=== PATIENT | male | born 1965 | race Hispanic/Latino ===

== ENCOUNTER 2024-10-04 11:24 | Emergency (ER) | payer OTHER ==
[~2024-10-04] VITALS: Ht 182.9 cm; Wt 106.1 kg
[~2024-10-04 11:24] MED LIST: BP; Z.0.CLINDAMYCIN HC30 PO; Z.0.LOSARTAN POTAS10 PO
[2024-10-04 11:37] VITALS: PULSE 72; RESP 17; TEMP 97; O2SAT 98
== END 2024-10-04 13:20 | disposition home or self-care (01) ==
LOC: ER 11:27
DX: R07.81 Pleurodynia (principal); X50.1XXA Overexertion from prolonged static or awkward postures, initial encounter; Y92.89 Other specified places as the place of occurrence of the external cause; I10 Essential (primary) hypertension
CPT/HCPCS: 71101; 99283